=== PATIENT | female | born 1970 | race Hispanic/Latino ===

== ENCOUNTER → 2022-12-09 | Day surgery (SDC) | payer BC ==
[~2022-12-09] MED LIST: ALENDRONATE SOD70 MG PO; AQUASOL A50000 UNIT PO; FENTANYL CITRATE/PF 100MCG/2 ML INJ ONE; FOLIC ACID20 MG PO; GLUCAGON FOR INJ 1 MG VIAL ONE; HYOSCYAMINE SULFATE 0.5 MG/ML INJ ONE; MULTI-VITAMIN1 EACH PO; PROPOFOL IV EMULSION 10 MG/ML 20 ML VIAL ONE; VITAMIN B-121000 MC4 PO; VITAMIN D250 MCG PO
[2022-12-09 15:51] VITALS: BP 138/85
[2022-12-09 16:26] LABS: WBC,FECAL (FECAL LACTOFERRIN) NEGATIVE (NEGATIVE)
== END | disposition home or self-care (01) ==
LOC: OR 11:16
PROVIDERS: ATTEND Internal Medicine Gastroenterology
DX: K29.50 Unspecified chronic gastritis without bleeding (principal); K63.5 Polyp of colon; K52.9 Noninfective gastroenteritis and colitis, unspecified; K62.89 Other specified diseases of anus and rectum; K20.90 Esophagitis, unspecified without bleeding; K44.9 Diaphragmatic hernia without obstruction or gangrene; Z98.84 Bariatric surgery status; K57.30 Diverticulosis of large intestine without perforation or abscess without bleeding; L29.0 Pruritus ani; K59.09 Other constipation; E66.01 Morbid (severe) obesity due to excess calories; K64.8 Other hemorrhoids; Z71.3 Dietary counseling and surveillance; M54.9 Dorsalgia, unspecified; Z71.89 Other specified counseling; Z91.010 Allergy to peanuts; Z91.013 Allergy to seafood; Z91.018 Allergy to other foods; Z01.810 Encounter for preprocedural cardiovascular examination; Z79.899 Other long term (current) drug therapy; Z68.42 Body mass index [BMI] 45.0-49.9, adult; Z86.16 Personal history of COVID-19; Z80.0 Family history of malignant neoplasm of digestive organs
CPT/HCPCS: 43239; 45380; 81025; 83630; 83993; 87324; 87449; 93005; C9113; J1610; J1980; J2704; J3010; 45384